=== PATIENT | male | born 1965 | race Caucasian/White ===

== ENCOUNTER 2016-07-21 08:57 | Day surgery (SDC) | payer OTHER ==
[2016-07-18 11:56] VITALS: BMI 24.3
[2016-07-21] MEDS ORDERED: BUPIVACAINE HCL/EPINEPHRINE/PF 30 ML VIAL IJ ONE ×2 (10:56→13:21)
--- NOTE | 2016-07-21 11:16 | HP ---
Admitting History and Physical - Admission History of Present Illness: The patient is a 51 yo male who presents for surgery today with Dr. Harmon for right carpal tunnel release/antecubital release. He has numbness/tingling in b/ l hands right>left to his 5th digits. At night he wears splits to help with his symptoms. Currently he denies any illiness. No CP, SOB or fevers. History Source: Patient Limitations to Obtaining History: No Limitations - Past Medical History Cardiovascular: No: Deep Vein Thrombosis, HTN Pulmonary: No: Asthma Gastrointestinal: No: Gastritis, GERD, Peptic Ulcer Disease Renal/: No: Hematuria, Renal Calculi Heme/Onc: Yes: Bleeding Disorder (he has low platlets which was evaluated by sales representative sales manager. Last count around 120.) Musculoskeletal: Yes: Other (left knee pain, right arm pain from elbow to hand.) - Past Surgical History Past Surgical History: Yes: Appendectomy Additional Past Surgical History: left shoulder surgery repair of labrum Left ACL reconstruction - Smoking History Smoking history: Former smoker Have you smoked in the past 12 months: No If you are a former smoker, when did you quit?: 1998 - Alcohol/Substance Use Hx Alcohol Use: Yes (socially) Home Medications - Allergies Allergies/Adverse Reactions: Allergies Allergy/AdvReac Type Severity Reaction Status Date / Time No Known Allergies Allergy Verified 07/18/16 11:56 - Home Medications Home Medications: Ambulatory Orders Acetaminophen [Tylenol .Extra-Strength -] 1 tab PO HS 07/18/16 Cetirizine HCl [Zyrtec -] 10 mg PO HS 07/18/16 Menthol [Biofreeze] 1 applic TP 07/18/16 Review of Systems - Review of Systems Constitutional: denies: Chills, Fever Neck: denies: Decreased ROM, Pain on Movement Cardiovascular: denies: Chest Pain, Palpitations, Shortness of Breath Respiratory: denies: Cough, Snoring, SOB Gastrointestinal: denies: Abdominal Pain, Melena Genitourinary: denies: Burning, Dysuria Musculoskeletal: reports: Extremity Pain (right arm from forearm to hand), Joint Pain (left knee) Integumentary: reports: Bruising Neurological: denies: Headache, Seizure Hematology/Lymphatic: reports: Easily Bruised. denies: Excessive Bleeding Physical Examination Vital Signs: Vital Signs Temperature 98.3 F 07/21/16 09:21 Pulse Rate 75 07/21/16 09:21 Respiratory Rate 20 07/21/16 09:21 Blood Pressure 126/79 07/21/16 09:21 O2 Sat by Pulse Oximetry (%) 98 07/21/16 09:27 Constitutional: Yes: Well Nourished, Calm Eyes: Yes: WNL, Conjunctiva Clear, EOM Intact HENT: Yes: WNL, Atraumatic, Normocephalic Neck: Yes: WNL, Supple, Trachea Midline Cardiovascular: Yes: WNL, Regular Rate and Rhythm Respiratory: Yes: WNL, Regular, CTA Bilaterally Gastrointestinal: Yes: WNL, Normal Bowel Sounds, Soft Extremities: No: Calf Tenderness Edema: No Peripheral Pulses WNL: Yes Peripheral Pulses: Left Doralis Pedis: 2+, Right Dorsalis Pedis: 2+ Neurological: Yes: WNL, Alert, Oriented ...Motor Strength: WNL, LUE, LLE, RUE, RLE Psychiatric: Yes: WNL, Alert, Oriented Assessment/Plan 51 yo male for right carpal tunnel/antecubital release He remains npo since midnight SCDs ordered for DVT ppx
[2016-07-21] MEDS ORDERED: PROPOFOL 20 ML ONE ×2 (11:27)
[2016-07-21] MEDS ORDERED: MIDAZOLAM HCL 2 MG/2 ML SINGLE DOSE VIAL ONE (11:28)
[2016-07-21] MEDS ORDERED: ceFAZolin SODIUM 1 GM VIAL ONE (12:03)
[2016-07-21] MEDS ORDERED: ONDANSETRON 4 MG/2 ML VIAL ONE ×2 (12:03→13:43)
[2016-07-21] MEDS ORDERED: DEXAMETHASONE SOD PHOSPHATE 4 MG/1 ML VIAL ONE (12:03)
--- NOTE | 2016-07-21 13:22 | DS ---
Physical Examination Vital Signs: Vital Signs Temperature 98.3 F 07/21/16 09:21 Pulse Rate 75 07/21/16 09:21 Respiratory Rate 20 07/21/16 09:21 Blood Pressure 126/79 07/21/16 09:21 O2 Sat by Pulse Oximetry (%) 98 07/21/16 09:27 Discharge Summary Reason For Visit: RIGHT CUBITAL TUNNEL AND CARPAL TUNNEL SYNDROME Condition: Good - Instructions Diet, Activity, Other Instructions: Use the sling for comfort for the first week. Move the fingers often to minimize scarring and stiffness. Elevate the hand and elbow when at rest. Call for a return appointment for suture removal in 13 days. Disposition: HOME - Home Medications Comprehensive Discharge Medication List: Ambulatory Orders Acetaminophen [Tylenol .Extra-Strength -] 1 tab PO HS 07/18/16 Cetirizine HCl [Zyrtec -] 10 mg PO HS 07/18/16 Menthol [Biofreeze] 1 applic TP 07/18/16
--- NOTE | 2016-07-21 13:22 | OP ---
Operative Note - Note: Operative Date: 07/21/16 Pre-Operative Diagnosis: Right carpal and cubital tunnel syndrome Operation: Right open cubital and carpal tunnel release Post-Operative Diagnosis: Same as Pre-op Surgeon: Salvador Harmon Anesthesia: General Operative Report Dictated: Yes
[2016-07-21] MEDS ORDERED: ONDANSETRON 4 MG/2 ML VIAL IVPUSH PRN (13:30)
[2016-07-21] MEDS ORDERED: oxyCODONE HCL 5 MG TABLET PO PRN ×2 (13:30→13:43)
[2016-07-21] MEDS ORDERED: LACTATED RINGERS SOLUTION 1,000 ML IV SCH (13:30)
[2016-07-21] MEDS ORDERED: PROMETHAZINE HCL 25 MG/1 ML VIAL IVPUSH PRN (13:30)
[2016-07-21] MEDS ORDERED: KETOROLAC TROMETHAMINE 30 MG/1 ML VIAL IVPUSH ONE ×2 (13:31→13:37)
[2016-07-21] MEDS ORDERED: ONDANSETRON 4 MG/2 ML VIAL IVPUSH ONE (13:37)
[2016-07-21] MEDS ORDERED: KETOROLAC TROMETHAMINE 30 MG/1 ML VIAL ONE (13:43)
[2016-07-21 15:10] VITALS: TEMP 98.2
[2016-07-21 15:47] VITALS: BP 124/72; PULSE 64
--- NOTE | 2016-07-21 16:37 | SURG ---
Surgery Sales And Marketing Associate Note Sales And Marketing Associate: Melissa Christiansen PA-C Date of Service: 07/21/16 Diagnosis: Right carpal and cubital tunnel syndrome Procedure: Right open cubital and carpal tunnel release I was present for the entirety of the operative procedure. For further detail, please refer to operative report. Visit type - Case Type Case Type: Scheduled Admission - Emergency Emergency Visit: No - New patient This patient is new to me today: Yes Date on this admission: 07/21/16 - Critical Care Critical Care patient: No
== END 2016-07-21 15:49 | disposition home or self-care (01) ==
LOC: FASU 08:57
PROVIDERS: ATTEND Orthopaedic Surgery
PROC: 01N40ZZ Release Ulnar Nerve, Open Approach (ICD-10-PCS; 2016-07-21)
PROC: 01N50ZZ Release Median Nerve, Open Approach (ICD-10-PCS; principal; 2016-07-21 12:20)
DX: G56.01 Carpal tunnel syndrome, right upper limb (principal); G56.21 Lesion of ulnar nerve, right upper limb
CPT/HCPCS: 94760